=== PATIENT | male | born 1965 | race Caucasian/White ===

== ENCOUNTER 2018-07-01 07:03 | Emergency (ER) | payer SELFPAY ==
[2018-07-01] MEDS: IBUPROFEN 600 MG TAB PO (07:45)
== END 2018-07-01 09:27 | disposition home or self-care (01) ==
LOC: FTE 07:03
DX: M54.5 Low back pain (principal); R40.2412 Glasgow coma scale score 13-15, at arrival to emergency department; F17.210 Nicotine dependence, cigarettes, uncomplicated
CPT/HCPCS: 71100; 99283-25